=== PATIENT | female | born 1975 | race Caucasian/White ===

== ENCOUNTER 2016-03-23 20:02 | Emergency (ER) | payer OTHER ==
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
--- NOTE | 2016-03-23 22:06 | DIAGNOSTIC IMAGING REPORT ---
PROCEDURE: XR CERVICAL SPINE 2 OR 3 VIEW INDICATION: NECK PAIN TECHNIQUE: Three views. COMPARISON: None. FINDINGS: There is moderate disc space narrowing at C4-5 and C5-6 with mild degenerate change of the facet joints. There is straightening of the cervical lordosis. The rest of the osseous structures and disc spaces are normal. No evidence of an acute process or fracture. IMPRESSION: 1. Moderate degenerative changes. 2. Otherwise negative cervical spine.
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
--- NOTE | 2016-03-23 22:19 | ED ORDER SUMMARY ---
..... Patient: NATHALIE ABARCA OrderSheet [facility] VisitID: [id number] [address] [place] [address] 40y, F Registration Date/Time: 03/23/2016 ORDER SHEET Weight: 74.8 kg (stated) Allergies: Penicillins GENERAL ORDERS: CT Head wo Cont Urgent (21:29 03/23/2016 EKoroledenise P.A.-C) (Ack 21:33 ORouse ER Tech1) (22:06 MCampbell) Cervical Spine 2 or 3V Urgent (21:29 03/23/2016 EKoroledenise P.A.-C) (Ack 21:33 ORouse ER Tech1) (22:06 MCampbell) Hand 3 or 4V Right Urgent (21:50 03/23/2016 Martín Sousa per protocol) (Ack 21:58 ORouse ER Tech1) (22:06 MCampbell) MEDICATION ORDERS: IV FLUIDS: ORDER SHEET NOTES: [Electronically signed by Navya BrarAJerson-Essence (22:42 03/23/2016)] [Electronically signed by Shaka Strange R.N. (:32 03/24/2016)] [Electronically locked/signed by Shaka Strange R.N. (:32 03/24/2016)]
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
--- NOTE | 2016-03-23 22:19 | ED ORDER SUMMARY ---
..... Patient: NATHALIE ABARCA OrderSheet [facility] VisitID: [id number] [address] [place] [address] 40y, F Registration Date/Time: 03/23/2016 ORDER SHEET Weight: 74.8 kg (stated) Allergies: Penicillins GENERAL ORDERS: CT Head wo Cont Urgent (21:29 03/23/2016 EKoroledenise P.A.-C) (Ack 21:33 LAouse ER Tech1) (22:06 MCampbell) Cervical Spine 2 or 3V Urgent (21:29 03/23/2016 EKoroledenise P.A.-C) (Ack 21:33 LAouse ER Tech1) (22:06 MCampbell) Hand 3 or 4V Right Urgent (21:50 03/23/2016 Martín Sousa per protocol) (Ack 21:58 LAouse ER Tech1) (22:06 MCampbell) MEDICATION ORDERS: IV FLUIDS: ORDER SHEET NOTES: [Electronically signed by Navya BrarAJerson-Essence (22:42 03/23/2016)] [Electronically signed by Shaka Strange R.N. (:32 03/24/2016)] [Electronically locked/signed by Shaka Strange R.N. (:32 03/24/2016)]
--- NOTE | 2016-03-24 01:32 | ED MAR SUMMARY ---
..... Medication Administration Record [facility] [address] [place], [place] [id number] Patient: NATHALIE ABARCA Visit ID: [id number] 40y, F Weight: 74.8 kg Height/Length: 72 in BMI: 22.4 ALLERGIES: Penicillins
--- NOTE | 2016-03-24 01:32 | ED MED RECONCILIATION SUMMARY ---
Patient: NATHALIE ABARCA Medication Reconciliation Report [facility] VisitID: [id number] [address] [place] [address] 40y, F Registration Date/Time: 03/23/2016 Weight: 74.8 kg Height/Length: 72 in. BMI: 22.4 ALLERGIES: Penicillins The patient's Home Medications are listed below: NONE. The source(s) of the original Home Medication information: patient The following Medications were given to the patient in the Emergency Department: None. The following Medications were prescribed to the patient: Zofran (orally disintegrating tablets) 4 mg: take 1 orally every 6 hours for 3 days as needed for nausea. Dispense ten (10). No refill. Substitution is permissible. -- Navya Brar, P.A.-C Ibuprofen 800 mg tablets: take 1 tablet orally every 8 hours for 4 days, as needed for pain. Dispense fifteen (15). No refill. -- Navya Brar, P.A.-C
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
--- NOTE | 2016-03-24 01:32 | ED MAR SUMMARY ---
..... Medication Administration Record [facility] [address] [place], [place] [id number] Patient: NATHALIE ABARCA Visit ID: [id number] 40y, F Weight: 74.8 kg Height/Length: 72 in BMI: 22.4 ALLERGIES: Penicillins
--- NOTE | 2016-03-24 01:32 | ED MED RECONCILIATION SUMMARY ---
Patient: NATHALIE ABARCA Medication Reconciliation Report [facility] VisitID: [id number] [address] [place] [address] 40y, F Registration Date/Time: 03/23/2016 Weight: 74.8 kg Height/Length: 72 in. BMI: 22.4 ALLERGIES: Penicillins The patient's Home Medications are listed below: NONE. The source(s) of the original Home Medication information: patient The following Medications were given to the patient in the Emergency Department: None. The following Medications were prescribed to the patient: Zofran (orally disintegrating tablets) 4 mg: take 1 orally every 6 hours for 3 days as needed for nausea. Dispense ten (10). No refill. Substitution is permissible. -- Navya Brar, P.A.-C Ibuprofen 800 mg tablets: take 1 tablet orally every 8 hours for 4 days, as needed for pain. Dispense fifteen (15). No refill. -- Navya Brar, P.A.-C
== END 2016-03-23 22:26 | disposition home or self-care (01) ==
LOC: ED SRH 20:02
DX: S09.90XA Unspecified injury of head, initial encounter (principal); S16.1XXA Strain of muscle, fascia and tendon at neck level, initial encounter; S60.221A Contusion of right hand, initial encounter; S60.222A Contusion of left hand, initial encounter; V43.52XA Car driver injured in collision with other type car in traffic accident, initial encounter; Y93.89 Activity, other specified; Y92.410 Unspecified street and highway as the place of occurrence of the external cause; Y99.9 Unspecified external cause status; Z88.0 Allergy status to penicillin